=== PATIENT | female | born 1975 | race Caucasian/White ===

== ENCOUNTER 2017-08-09 17:25 | Inpatient (IN) | payer MEDICAID ==
[2017-08-09 19:03] LABS: RUPTURE FETAL MEMBRANES POSITIVE (NEGATIVE)
[2017-08-09] MEDS ORDERED: CARBOPROST 250 MCG INJ IM (19:30)
[2017-08-09] MEDS ORDERED: BUTORPHANOL 2 MG INJ IV (19:30)
[2017-08-09] MEDS ORDERED: OXYTOCIN 30 UNITS/LR 500 ML IV ×2 (19:30→20:30)
[2017-08-09] MEDS ORDERED: LIDOCAINE 1% (MPF) 30 ML INJ INJ (19:30)
[2017-08-09] MEDS ORDERED: METHYLERGONOVINE 0.2 MG INJ IM (19:30)
[2017-08-09] MEDS ORDERED: MISOPROSTOL 200 MCG TAB PR (19:30)
[2017-08-09] MEDS ORDERED: IBUPROFEN 600 MG TAB PO (19:30)
[2017-08-09 19:41] LABS: ADD MAN DIFF? NO
[2017-08-09 19:47] LABS: BASOPHILS % 0.2 % (0.0-2.0); EOSINOPHILS % 0.1 % (0.0-7.0); HEMATOCRIT 36.2 % (37.0-47.0); HEMOGLOBIN 11.8 g/dl (12.0-16.0); LYMPHOCYTES # 1.3 10^3/ul (0.8-2.9); LYMPHOCYTES % 11.4 % (15.0-51.0); MEAN CORPUSCULAR HEMOGLOBIN 27.1 pg (29.0-33.0); MEAN CORPUSCULAR HGB CONC 32.6 g/dl (32.0-37.0); MEAN PLATELET VOLUME 11.7 fl (7.4-10.4); MONOCYTE # 0.5 10^3/ul (0.3-0.9); NEUTROPHIL # 9.4 10^3/ul (1.6-7.5); NEUTROPHILS % 83.9 % (39.0-77.0); PLATELET COUNT 246 10^3/UL (140-415); RED BLOOD COUNT 4.36 10^6/ul (4.20-5.40); RED CELL DISTRIBUTION WIDTH 19.6 % (11.5-14.5)
[2017-08-09 19:47] LABS: WHITE BLOOD COUNT 11.2 10^3/ul (4.8-10.8)
[2017-08-09] MEDS: LACTATED RINGER'S 1,000 ML IV (19:49)
[2017-08-09] MEDS: AMPICILLIN 2 GM/NS (PMX) 100 ML IV (20:08)
[2017-08-09 20:34] LABS: HEPATITIS B SURFACE ANTIGEN NEGATIVE (NEGATIVE)
[2017-08-09 20:44] LABS: INR 0.85; PROTIME 11.7 Sec (11.9-14.9); PT RATIO 0.9
[2017-08-09 20:45] LABS: PARTIAL THROMBOPLASTIN TIME 25.8 Sec (25.0-35.0)
[2017-08-09] MEDS: OXYTOCIN 30 UNITS/LR 500 ML IV ×2 (22:31→22:32)
[2017-08-09] MEDS ORDERED: AMPICILLIN 1 GM/NS (PMX) 50 ML IV (23:30)
[2017-08-10] MEDS: LACTATED RINGER'S 1,000 ML IV* ×2 (01:38→09:38)
[2017-08-10] MEDS ORDERED: ZOLPIDEM 5 MG TAB PO (02:00)
[2017-08-10] MEDS ORDERED: DIBUCAINE 1% 30 GM OINT PR (02:00)
[2017-08-10] MEDS ORDERED: METHYLERGONOVINE 0.2 MG INJ IM (02:00)
[2017-08-10] MEDS ORDERED: MISOPROSTOL 200 MCG TAB PR (02:00)
[2017-08-10] MEDS ORDERED: CARBOPROST 250 MCG INJ IM (02:00)
[2017-08-10] MEDS ORDERED: HYDROCODONE/APAP (5/325) TAB PO (02:00)
[2017-08-10] MEDS ORDERED: OXYTOCIN 30 UNITS/LR 500 ML IV (02:00)
[2017-08-10] MEDS: HYDROCODONE/APAP (5/325) TAB PO (02:26)
[2017-08-10] MEDS: BENZOCAINE 20% 56 ML SPRAY TOP (02:27)
[2017-08-10] MEDS: WITCH HAZEL/GLYCERIN PAD PR (02:27)
[2017-08-10] MEDS: LANOLIN 7 GM TUBE TOP (02:27)
[2017-08-10] MEDS: IBUPROFEN 600 MG TAB PO ×3 (06:09→17:48)
[2017-08-10] MEDS: CEPHALEXIN 500 MG CAP PO ×3 (06:09→17:48)
[2017-08-10 08:34] LABS: ADD MAN DIFF? NO
[2017-08-10 08:43] LABS: BASOPHILS % 0.3 % (0.0-2.0); EOSINOPHILS % 0.1 % (0.0-7.0); HEMATOCRIT 29.9 % (37.0-47.0); HEMOGLOBIN 10.1 g/dl (12.0-16.0); LYMPHOCYTES # 1.4 10^3/ul (0.8-2.9); LYMPHOCYTES % 9.4 % (15.0-51.0); MEAN CORPUSCULAR HEMOGLOBIN 28.1 pg (29.0-33.0); MEAN CORPUSCULAR HGB CONC 33.8 g/dl (32.0-37.0); MEAN CORPUSCULAR VOLUME 83.1 fl (82.0-101.0); MEAN PLATELET VOLUME 11.4 fl (7.4-10.4); MONOCYTE # 0.6 10^3/ul (0.3-0.9); MONOCYTES % 4.2 % (0.0-11.0); NEUTROPHIL # 12.9 10^3/ul (1.6-7.5); NEUTROPHILS % 85.6 % (39.0-77.0); PLATELET COUNT 209 10^3/UL (140-415); RED CELL DISTRIBUTION WIDTH 19.9 % (11.5-14.5)
[2017-08-10 08:43] LABS: WHITE BLOOD COUNT 15.1 10^3/ul (4.8-10.8)
[2017-08-10] MEDS: SENNA/DOCUSATE NA (8.6MG/50MG) TAB PO ×2 (09:51→22:24)
[2017-08-10] MEDS: MAGNESIUM HYDROXIDE 30ML CUP PO ×2 (09:51→22:24)
[2017-08-10 14:59] LABS: RAPID PLASMA REAGIN NONREACTIVE (NR)
[2017-08-10] MEDS: DIPHTH/TET/ACEL PERTUSS (ADULT) 0.5 ML VIAL IM* (17:30)
[2017-08-10] MEDS: MEASLES,MUMPS,RUBELLA VACCINE INJ SC* (17:30)
[2017-08-11] MEDS: CEPHALEXIN 500 MG CAP PO ×3 (01:22→12:23)
[2017-08-11] MEDS: IBUPROFEN 600 MG TAB PO ×3 (01:23→12:23)
[2017-08-11 08:57] LABS: ADD MAN DIFF? NO
[2017-08-11] MEDS: SENNA/DOCUSATE NA (8.6MG/50MG) TAB PO (09:00)
[2017-08-11] MEDS: MAGNESIUM HYDROXIDE 30ML CUP PO (09:00)
[2017-08-11] MEDS: VARICELLA VACCINE LIVE/PF 1,350 UNIT/0.5 ML ML SC* (09:00)
[2017-08-11 09:03] LABS: BASOPHILS % 0.3 % (0.0-2.0); EOSINOPHILS # 0.1 10^3/ul (0.0-0.5); EOSINOPHILS % 0.7 % (0.0-7.0); HEMATOCRIT 31.4 % (37.0-47.0); HEMOGLOBIN 10.1 g/dl (12.0-16.0); LYMPHOCYTES # 1.9 10^3/ul (0.8-2.9); LYMPHOCYTES % 16.3 % (15.0-51.0); MEAN CORPUSCULAR HEMOGLOBIN 27.4 pg (29.0-33.0); MEAN CORPUSCULAR HGB CONC 32.2 g/dl (32.0-37.0); MEAN CORPUSCULAR VOLUME 85.3 fl (82.0-101.0); MEAN PLATELET VOLUME 11.4 fl (7.4-10.4); MONOCYTE # 0.5 10^3/ul (0.3-0.9); MONOCYTES % 4.4 % (0.0-11.0); NEUTROPHIL # 9.3 10^3/ul (1.6-7.5); PLATELET COUNT 218 10^3/UL (140-415); RED BLOOD COUNT 3.68 10^6/ul (4.20-5.40); RED CELL DISTRIBUTION WIDTH 20.3 % (11.5-14.5)
[2017-08-11 09:03] LABS: WHITE BLOOD COUNT 11.9 10^3/ul (4.8-10.8)
== END 2017-08-11 14:30 | disposition home or self-care (01) | DRG 775 ==
LOC: OBT 17:25 → PP1 08-10 01:04 → L-D 17:26 → OBT 18:41 → L-D 18:30
PROVIDERS: Obstetrics & Gynecology
PROC: 10E0XZZ Delivery of Products of Conception, External Approach (ICD-10-PCS; principal; 2017-08-09)
DX: O34.219 Maternal care for unspecified type scar from previous cesarean delivery (principal); Z37.0 Single live birth; Z3A.39 39 weeks gestation of pregnancy
CPT/HCPCS: 76815; 84112; 85025; 85610; 85730; 86592; 86850; 86900; 86901; 87340